=== PATIENT | female | born 1955 | race Two or more races ===

== ENCOUNTER 2020-02-20 10:14 | Emergency (ER) | payer MEDICARE, OTHER ==
[~2020-02-20] VITALS: Ht 167.6 cm; Wt 99.8 kg
[2020-02-20 12:11] VITALS: BP 126/77
== END 2020-02-20 12:16 | disposition home or self-care (01) ==
LOC: ER 10:14
DX: J06.9 Acute upper respiratory infection, unspecified (principal); Z20.828 Contact with and (suspected) exposure to other viral communicable diseases
CPT/HCPCS: 36415; 71045; 87426; 93005